=== PATIENT | male | born 1960 | race Asian ===

== ENCOUNTER 2016-10-26 09:37 | Outpatient (CLI) | payer OTHER | END 2016-10-26 19:06 | disposition home or self-care (01) | LOC: US 09:37 | DX: I10 Essential (primary) hypertension (principal) ==

== ENCOUNTER 2017-10-06 13:28 | Outpatient (CLI) | payer OTHER ==
[2017-10-06 15:23] LABS: PLATELET COUNT 347 K/uL (142-355)
[2017-10-06 16:59] LABS: POTASSIUM 3.8 mmol/L (3.6-5.2)
== END 2017-10-06 21:25 | disposition home or self-care (01) ==
LOC: LAB 13:28
PROVIDERS: Nurse Practitioner Family
DX: E78.4 Other hyperlipidemia (principal); I10 Essential (primary) hypertension; Z79.899 Other long term (current) drug therapy; Z51.81 Encounter for therapeutic drug level monitoring
CPT/HCPCS: 80053; 80061; 83036; 84436; 84443; 85027

== ENCOUNTER 2020-02-29 13:40 | Outpatient (CLI) | payer OTHER ==
[2020-02-29 14:14] LABS: POTASSIUM 3.4 mmol/L (3.6-5.2)
[2020-02-29 14:15] LABS: PLATELET COUNT 360 K/uL (142-355)
== END 2020-02-29 19:00 | disposition home or self-care (01) ==
LOC: LABW 13:40
PROVIDERS: ATTEND Nurse Practitioner Family
DX: E87.6 Hypokalemia (principal)
CPT/HCPCS: 36415; 80053; 85027

== ENCOUNTER 2020-08-11 10:44 | Outpatient (CLI) | payer OTHER | END 2020-08-11 19:54 | disposition home or self-care (01) | LOC: US 10:44 | PROVIDERS: ATTEND Nurse Practitioner Family | DX: E03.8 Other specified hypothyroidism (principal); E11.9 Type 2 diabetes mellitus without complications; E78.49 Other hyperlipidemia; D64.89 Other specified anemias ==

== ENCOUNTER 2020-08-13 10:34 | Outpatient (CLI) | payer OTHER | END 2020-08-13 21:30 | disposition home or self-care (01) | LOC: US 10:34 | PROVIDERS: ATTEND Nurse Practitioner Family | DX: E03.8 Other specified hypothyroidism (principal); E11.9 Type 2 diabetes mellitus without complications; E78.49 Other hyperlipidemia; D64.89 Other specified anemias ==

== ENCOUNTER 2021-05-18 08:31 | Outpatient (CLI) | payer OTHER | END 2021-05-18 18:50 | disposition home or self-care (01) | LOC: US 08:31 | PROVIDERS: ATTEND Internal Medicine | DX: N18.32 Chronic kidney disease, stage 3b (principal); R53.83 Other fatigue ==

== ENCOUNTER 2021-07-14 09:49 | Outpatient (CLI) | payer OTHER | END 2021-07-14 18:53 | disposition home or self-care (01) | LOC: MRI 09:49 | PROVIDERS: ATTEND Internal Medicine | DX: N28.89 Other specified disorders of kidney and ureter (principal) | CPT/HCPCS: 36415; 82565; 84520 ==

== ENCOUNTER 2022-05-05 11:52 | Outpatient (CLI) | payer OTHER | END 2022-05-05 21:37 | disposition home or self-care (01) | LOC: RAD 11:52 | PROVIDERS: ATTEND Nurse Practitioner Family | DX: M25.562 Pain in left knee (principal) ==

== ENCOUNTER 2022-05-11 15:01 | Outpatient (CLI) | payer OTHER ==
[2022-05-11 15:20] LABS: PLATELET COUNT 413 K/uL (142-355)
[2022-05-11 16:15] LABS: POTASSIUM 2.8 mmol/L (3.6-5.2)
== END 2022-05-11 19:41 | disposition home or self-care (01) ==
LOC: LABW 15:01
PROVIDERS: ATTEND Internal Medicine
DX: E11.22 Type 2 diabetes mellitus with diabetic chronic kidney disease (principal); N18.32 Chronic kidney disease, stage 3b; D63.1 Anemia in chronic kidney disease
CPT/HCPCS: 36415; 80053; 81002; 82043; 82306; 82330; 82570; 82607; 82728; 82746; 83036; 83540; 83550; 83735; 83970; 84100; 84156; 84439; 84443; 85027